=== PATIENT | female | born 1960 | race Caucasian/White ===

== ENCOUNTER 2019-11-13 12:17 | Outpatient (CLI) | payer BC, SELFPAY ==
[2019-11-14 14:34] LABS: COVID-19 RT-PCR Result NEGATIVE (Negative)
== END 2019-11-13 12:37 ==
PROVIDERS: PCP Internal Medicine; Visit Provider Nurse Practitioner Family
DX: Z11.59 Encounter for screening for other viral diseases (principal); R68.89 Other general symptoms and signs
CPT/HCPCS: U0003